=== PATIENT | female | born 1995 | race Caucasian/White ===

== ENCOUNTER 2018-10-07 09:02 | Day surgery (SDC) | payer BC, OTHER ==
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
[2018-10-07] MEDS ORDERED: ACETAMINOPHEN 500 MG TAB PO ONE (09:18)
[2018-10-07] MEDS ORDERED: PREGABALIN 150 MG CAP PO ONE (09:18)
[2018-10-07] MEDS ORDERED: ceFAZolin 2 GM/DEXTROSE 100 ML IV ONE (09:18)
[2018-10-07] MEDS ORDERED: EPINEPHrine 30 MG/30 ML MDV (0.1 MG/0.1 ML) ONE (09:24)
[2018-10-07] MEDS ORDERED: LIDOCAINE 1% 2 ML INJ ID PRN (09:24)
[2018-10-07] MEDS ORDERED: BUPIVACAINE/EPI 0.25% 30 ML SDV ONE (09:24)
[2018-10-07] MEDS ORDERED: LR 1,000 ML IV ONE (09:24)
[2018-10-07] MEDS ORDERED: MIDAZOLAM 2 MG/2 ML VIAL IVP ONE (10:50)
--- NOTE | 2018-10-07 10:50 | PDANEPAE ---
ANE History of Present Illness here for hip arthroscopy ANE Past Medical History - Cardiovascular History Hx Hypertension: No Hx Arrhythmias: No Hx Chest Pain: No Hx Coronary Artery / Peripheral Vascular Disease: No Hx CHF / Valvular Disease: No Hx Palpitations: No - Pulmonary History Hx COPD: No Hx Asthma/Reactive Airway Disease: No Hx Recent Upper Respiratory Infection: No Hx Oxygen in Use at Home: No Hx Sleep Apnea: No Sleep Apnea Screening Result - Last Documented: Negative - Neurologic History Hx Cerebrovascular Accident: No Hx Seizures: No Hx Dementia: No - Endocrine History Hx Diabetes: No - Renal History Hx Renal Disorders: No - Liver History Hx Hepatic Disorders: No - Neurological & Psychiatric Hx Hx Neurological and Psychiatric Disorders: No Neurological / Psychiatric History Comment: numbness and tingling left leg - Cancer History Hx Cancer: No - Congenital Disorder History Hx Congenital Disorders: No - GI History Hx Gastrointestinal Disorders: No - Other Health History Other Health History: LOW IRON LEVELS AT TIMES - Chronic Pain History Chronic Pain: No (R HIP) - Surgical History Prior Surgeries: 01/2018 L ARTHROSCOPY W/FEMOROPLASTY ANE Review of Systems Review of Systems: - Exercise capacity METS (RN): 4 METS ANE Patient History - Allergies Allergies/Adverse Reactions: nickel Allergy (Verified 10/07/18 09:34) Hives zolpidem Allergy (Verified 10/07/18 09:34) Other-Enter Comments - Home Medications Home Medications: Lexapro 01/04/18 [Last Taken 01/20/18] Vyvanse 01/04/18 [Last Taken 10/06/18] - NPO status NPO Status: no food or drink >8 hours NPO Since - Liquids (Date): 10/06/18 NPO Since - Liquids (Time): 23:30 NPO Since - Solids (Date): 10/06/18 NPO Since - Solids (Time): 21:30 - Anes Hx Anes Hx: no prior problems - Smoking Hx Smoking Status: Former smoker - Alcohol Use Alcohol Use: None - Family Anes Hx Family Anes Hx: none Family Hx Anesthesia Complications: none ANE Labs/Vital Signs - Vital Signs Vital Signs: reviewed preoperatively; see RN documention for details Height: 157.48 cm Weight: 71.668 kg ANE Physical Exam - Airway Neck exam: FROM Mallampati Score: Class 2 Mouth exam: normal dental/mouth exam - Pulmonary Pulmonary: no respiratory distress, clear to auscultation - Cardiovascular Cardiovascular: regular rate and rhythym, no murmur, rub, or gallop - ASA Status ASA Status: I
[2018-10-07] MEDS ORDERED: fentaNYL 100 MCG/2 ML INJ ONE ×3 (11:00→16:13)
[2018-10-07] MEDS ORDERED: ROCURONIUM 100 MG/10 ML VIAL ONE (11:01)
[2018-10-07] MEDS ORDERED: PROPOFOL 200 MG/20 ML VIAL ONE (11:01)
[2018-10-07] MEDS ORDERED: LIDOCAINE 2% 100 MG/5 ML SYR ONE (11:01)
[2018-10-07] MEDS ORDERED: PROPOFOL/EMULSION 500 MG/50 ML BOTTLE IV ONE ×2 (11:26→13:38)
[2018-10-07] MEDS ORDERED: MEPERIDINE 25 MG/0.5 ML AMP IVP PRN (15:21)
[2018-10-07] MEDS ORDERED: DIAZEPAM 10 MG/2 ML SYR IVP PRN (15:21)
[2018-10-07] MEDS ORDERED: HYDROmorphONE/DILAUDID 1 MG/ML INJ IVP PRN (15:21)
[2018-10-07] MEDS ORDERED: PROMETHAZINE HCL 25 MG/ML INJ IVP PRN (15:21)
[2018-10-07] MEDS ORDERED: HYDROCODONE/APAP 5/325 TAB PO PRN (15:21)
[2018-10-07] MEDS ORDERED: ONDANSETRON 4 MG/2 ML VIAL IVP PRN (15:21)
[2018-10-07] MEDS ORDERED: oxyCODONE IR 5 MG TAB PO PRN (15:21)
[2018-10-07] MEDS ORDERED: NALOXONE HCL 0.4 MG/ML INJ IVP PRN (15:21)
[2018-10-07] MEDS ORDERED: ACETAMINOPHEN 500 MG TAB PO PRN (15:21)
--- NOTE | 2018-10-07 15:50 | POSTANESTH ---
Post Anesthetic Evaluation Cardiovascular Status: Normal, Stable, Similar to Pre-Op Cond Respiratory Status: Normal, Stable, Similar to Pre-op Cond., Requires Airway Assist Level of Consciousness/Mental Status: Moderately Sleepy Pain Control: Adequate, Prn Tx Ordered Nausea/Vomiting Control: Adequate, Prn Tx Ordered Complications Possibly Related to Anesthesia: None Noted
--- NOTE | 2018-10-07 15:54 | POSTOPPROG ---
Post Op Note Date of Operation: 10/07/18 Surgeon: Baudilio David Fellmongering Machine Operator: Anesthesia: GET(General Endotracheal) Pre-op Diagnosis: RIGHT MAZIN Post-op Diagnosis: RIGHT MAZIN Procedure: Right Hip Arthroscopy Inf/Abcess present in the surg proc area at time of surgery?: No
[2018-10-07] MEDS ORDERED: HYDROmorphONE/DILAUDID 1 MG/ML INJ ONE (16:13)
[2018-10-07] MEDS: fentaNYL 100 MCG/2 ML INJ IVP PRN ×2 (16:16→16:50)
[2018-10-07] MEDS ORDERED: oxyCODONE IR 5 MG TAB ONE (16:48)
[2018-10-07 17:37] VITALS: BP 118/70
== END 2018-10-07 17:30 | disposition home or self-care (01) ==
LOC: FSGY 09:02
PROVIDERS: ATTEND Orthopaedic Surgery Sports Medicine
PROC: 0QQ64ZZ Repair Right Upper Femur, Percutaneous Endoscopic Approach (ICD-10-PCS; principal; 2018-10-07 10:45)
DX: S73.191A Other sprain of right hip, initial encounter (principal); M25.851 Other specified joint disorders, right hip; M51.26 Other intervertebral disc displacement, lumbar region; V89.0XXS Person injured in unspecified motor-vehicle accident, nontraffic, sequela
CPT/HCPCS: C1713; J0171; J0690; J1170; J2001; J2250; J2704; J3010